=== PATIENT | male | born 1995 | race Caucasian/White ===

== ENCOUNTER 2016-10-28 18:40 | Emergency (ER) | payer OTHER ==
[2016-10-28 18:46] VITALS: RESP 16
--- NOTE | 2016-10-28 19:03 | EDPHY ---
H & P Stated Complaint: laceration to left ear after fall. HPI/ROS: CHIEF COMPLAINT: Head injury, ear laceration HISTORY OF PRESENT ILLNESS: Patient reports for laceration of the left ear. He says he was playing paint ball earlier today when he tripped and fell, striking his head on a wooden wall. This was while wearing a face mask. The face mask cut the upper side of his left ear with the ear meets the head. There is no laceration of the actual anterior structure. The ear laceration was painful but has stopped bleeding and is no longer painful at rest. It is minimally painful if you touch it. He said he had a headache for about an hour after the injury but this went away. He has had no vomiting. No changes in vision. No neck pain or stiffness. No fever chills. No complaints of any kind other than being here for the laceration. He 1st presented to Urgent Care, and they deferred and referred him to the emergency department for higher level of care. No other associated complaints or modifying factors. Tetanus is up-to- date as of 2 years ago. REVIEW OF SYSTEMS: Ten systems reviewed and are negative unless otherwise noted in the HPI PAST MEDICAL HISTORY: Denies any medical history. Denies taking any anticoagulants SOCIAL HISTORY: Nonsmoker. From [place] and lives here in [place] is he is a student at [employer]. FAMILY HISTORY: Noncontributory EXAMINATION General Appearance: Alert, no distress Head: normocephalic, atraumatic with exception of your laceration as noted below. No Patel sign. No raccoon eyes. No depression or hematoma Eyes: Pupils equal and round, no conjunctival pallor or injection ENT, Mouth: Hearing intact to normal conversation. Mucous membranes moist. Airway widely patent. No trismus Neck: Normal inspection, supple, non-tender. Painless range of motion all planes Respiratory: Lungs are clear to auscultation. No wheezing, rhonchi or crackles Cardiovascular: Regular rate and rhythm. No murmur. Pulses intact distally symmetrically Gastrointestinal: Abdomen is soft and nontender Neurological: A&O, nonfocal, normal gait. GCS 15. Strength is 5/5 in all 4 limbs. No pronator drift. No dysmetria Skin: Warm and dry, no rash. 2 cm laceration between the left ear in the left side of the scalp. There is no exposure of or injury to the cartilage of the pinna. No active bleeding. No foreign body noted. Extremities: Nontender, no pedal edema Psychiatric: Mood and affect normal DIFFERENTIAL DIAGNOSES: Including but not limited to complex laceration, laceration, laceration, closed head injury, intracranial hemorrhage, basilar skull fracture MDM: 7:00 p.m. Rule out to the left side. Closed head injury with no evidence of intracranial hemorrhage. There is negative criteria for CT scan of the head based on [place] CT head rules. He is awake and alert, full normal neuro examination. The wound has been anesthetized. Proceed with irrigation and closure. 7:35 p.m. Complex laceration of the left ear without any involvement of the cartilage. There is no hematoma over the cartilage. Wound was irrigated and closed without complication. Tolerated well. Discharged home with wound care instructions. Follow up here in 5-7 days for suture removal. Return sooner for signs of infection as discussed. We also discussed ED precautions for closed head injury. He is discharged home in stable condition. PROCEDURE: Laceration repair Consent: Verbal Location: The left ear Length of repair: 2 cm Complexity: Complex due to location Layer involvement: Single Anesthesia: Local, 1% lidocaine plain, 5 mL Irrigation: Extensive Debridement: None Procedure description: Following good anesthesia, the wound was copiously irrigated. Wound bed was explored and there is no foreign body noted. There was no injury to the cartilage the and this was well visualized. Wound borders were approximated well with good hemostasis. Tolerated well without complication. Suture/Staple material: 6-0 Prolene, 6 simple interrupted sutures Wound care: Routine as discussed Suture/Staple removal: 5-7 Days SUPERVISION: This patient was independently evaluated without direct examination by the attending physician. Case was discussed with attending physician. Source: Patient Exam Limitations: No limitations - Personal History Current Tetanus Diphtheria and Acellular Pertussis (TDAP): Yes - Medical/Surgical History Hx Asthma: No Hx Chronic Respiratory Disease: No Hx Diabetes: No Hx Cardiac Disease: No Hx Renal Disease: No Hx Cirrhosis: No Hx Alcoholism: No Hx HIV/AIDS: No Hx Splenectomy or Spleen Trauma: No Other PMH: Denies - Social History Smoking Status: Never smoked Constitutional: Initial Vital Signs Temperature (C) 98.1 F 10/28/16 18:43 Heart Rate 89 10/28/16 18:43 Respiratory Rate 16 10/28/16 18:43 Blood Pressure 120/77 10/28/16 18:43 O2 Sat (%) 95 10/28/16 18:43 O2 Delivery Mode Room Air Allergies/Adverse Reactions: No Known Allergies Allergy (Unverified 10/28/16 18:46) Home Medications: Medication Instructions Recorded NK [No Known Home Meds] 10/28/16 Departure - Departure Disposition: Home, Routine, Self-Care Clinical Impression: Laceration of ear Qualifiers: Encounter type: initial encounter Laterality: left Qualified Code(s): S01.312A - Laceration without foreign body of left ear, initial encounter Condition: Good Instructions: Care For Your Stitches (ED), Laceration (ED), Head Injury (ED) Additional Instructions: 1. Daily wound care as discussed 2. Follow up here or with primary care physician in 5-7 days for suture removal 3. Return here for any headache, nausea, vomiting, neck pain, bruising around the eyes or behind the ears. Referrals: Anahi You MD [Medical Doctor] - As per Instructions NONE *PRIMARY CARE P,. [Primary Care Provider] - As per Instructions Eddie Starr MD [Medical Doctor] - As per Instructions
[2016-10-28 19:55] VITALS: BP 137/70; PULSE 80; TEMP 98.4; O2SAT 96
== END 2016-10-28 19:54 | disposition home or self-care (01) ==
PROC: 0HQ3XZZ Repair Left Ear Skin, External Approach (ICD-10-PCS; principal; 2016-10-28)
DX: S01.312A Laceration without foreign body of left ear, initial encounter (principal); W01.10XA Fall on same level from slipping, tripping and stumbling with subsequent striking against unspecified object, initial encounter